=== PATIENT | female | born 1975 | race Caucasian/White ===

== ENCOUNTER 2018-03-04 16:50 | Inpatient (IN) | payer OTHER ==
[~2018-03-04] VITALS: Ht 160 cm; Wt 102.9 kg
[2018-03-04 17:27] LABS: HEMATOCRIT 36.2 % (36.0-46.0); HEMOGLOBIN 11.9 G/DL (11.9-15.5); MCHC 32.9 G/DL (30.0-36.0); MCV 79.2 FL (83-99); PLATELET COUNT 308 K/uL (156-360); RBC DIS.WIDTH-SD 43.2 % (39-53); RED BLOOD COUNT 4.57 M/uL (3.80-5.20); WHITE BLOOD COUNT 13.2 K/uL (4.1-10.2)
[2018-03-04 17:38] LABS: ALBUMIN 4.2 g/dL (3.2-4.8); CHLORIDE 102 mEq/L (99-109); POTASSIUM 3.6 mEq/L (3.7-5.4); SODIUM 137 mEq/L (136-147)
[2018-03-04 17:40] LABS: GLUCOSE 117 mg/dL (70-99); TOTAL PROTEIN 8.1 g/dL (6.4-8.3)
[2018-03-04 17:42] LABS: TOTAL BILIRUBIN 0.2 mg/dL (0.0-1.0)
[2018-03-04 17:44] LABS: ALKALINE PHOSPHATASE 98 IU/L (3-129); CREATININE 0.8 mg/dL (0.6-1.3); GFR ESTIMATE (CALCULATED) > 59 mL/min/
[2018-03-04 17:45] LABS: UREA NITROGEN (BUN) 13 mg/dL (9-23)
[2018-03-04 17:46] LABS: AST (GOT) 18 IU/L (2-34)
[2018-03-04 17:47] LABS: ALT (GPT) 28 IU/L (3-49)
[2018-03-04 18:46] LABS: LIPASE 11 U/L (1.0-51.0)
[2018-03-04 18:51] LABS: QUANTITATIVE HCG < 4.0 MIU/ML
[2018-03-04 18:58] LABS: APPEARANCE SL.HAZY ((CLEAR)); BILIRUBIN NEGATIVE; BLOOD SMALL; COLOR YELLOW ((YELLOW)); GLUCOSE (STRIP) NEGATIVE; KETONES NEGATIVE; LEUKOCYTES NEGATIVE; NITRITE NEGATIVE; PROTEIN (STRIP) NEGATIVE
[2018-03-04 19:02] LABS: BACTERIA RARE /HPF; EPITHELIAL CELLS 1+ /HPF; MUCUS TRACE /LPF; RED BLOOD CELLS 0-5 /HPF (0-5); UCUL ADDED? NO; WHITE BLOOD CELLS 0-5 /HPF (0-5)
[2018-03-05] MEDS ORDERED: ATORVASTATIN CA40 MG PO (00:37)
[2018-03-05] MEDS ORDERED: LISINOPRIL20 MG PO (00:38)
[2018-03-05] MEDS ORDERED: CHLORTHALIDONE25 MG PO (01:57)
[2018-03-05 02:26] VITALS: BP 128/82
[2018-03-05 06:29] LABS: HEMATOCRIT 36.1 % (36.0-46.0); HEMOGLOBIN 11.5 G/DL (11.9-15.5); MCH 25.4 PG (29.0-34.0); MCHC 31.9 G/DL (30.0-36.0); MCV 79.9 FL (83-99); PLATELET COUNT 309 K/uL (156-360); RBC DIS.WIDTH-CV 15.2 % (11.8-14.6); RBC DIS.WIDTH-SD 43.8 % (39-53); RED BLOOD COUNT 4.52 M/uL (3.80-5.20); WHITE BLOOD COUNT 12.9 K/uL (4.1-10.2)
[2018-03-05 07:02] LABS: ALKALINE PHOSPHATASE 85 IU/L (3-129); ALT (GPT) 23 IU/L (3-49); AST (GOT) 18 IU/L (2-34); CHLORIDE 98 MEQ/L (99-109); CREATININE 0.7 MG/DL (0.6-1.3); GFR ESTIMATE (CALCULATED) > 59 mL/min/; GLUCOSE 128 mg/dL (70-99); MAGNESIUM 2.3 mg/dl (1.3-2.7); PHOSPHORUS 3.8 mg/dL (2.5-4.9); POTASSIUM 3.8 MEQ/L (3.7-5.4); SODIUM 138 MEQ/L (136-147); TOTAL BILIRUBIN 0.5 MG/DL (0.0-1.0); TOTAL PROTEIN 7.8 G/DL (6.4-8.3); UREA NITROGEN (BUN) 11 mg/dL (9-23)
[2018-03-05 07:52] VITALS: BP 110/60
[2018-03-05 11:15] VITALS: BP 117/72
[2018-03-05 16:35] VITALS: BP 107/67
[2018-03-05 20:22] VITALS: BP 97/56
[2018-03-05 21:12] LABS: APPEARANCE CLEAR ((CLEAR)); BILIRUBIN NEGATIVE; BLOOD NEGATIVE; COLOR YELLOW ((YELLOW)); GLUCOSE (STRIP) NEGATIVE; KETONES NEGATIVE; LEUKOCYTES NEGATIVE; NITRITE NEGATIVE; PROTEIN (STRIP) NEGATIVE; UROBILINOGEN 0.2 MG/DL (0.2-1.0)
[2018-03-05 23:53] VITALS: BP 101/59
[2018-03-06 06:03] LABS: BASOPHIL (%) 0.7 % (0-1); BASOPHIL COUNT 0.1 K/uL (0-0.1); EOSINOPHIL (%) 1.9 % (0-5); EOSINOPHIL COUNT 0.2 K/uL (0-0.3); HEMATOCRIT 33.9 % (36.0-46.0); HEMOGLOBIN 10.7 G/DL (11.9-15.5); IMMATURE GRANULOCYTE (%) 0.6 % (0.0-0.7); LYMPHOCYTE (%) 23.8 % (15-42); LYMPHOCYTE COUNT 2.9 K/uL (1.0-2.8); MCH 25.1 PG (29.0-34.0); MCHC 31.6 G/DL (30.0-36.0); MCV 79.4 FL (83-99); MONOCYTE (%) 6.4 % (3-12); MONOCYTE COUNT 0.8 K/uL (0-0.8); NEUTROPHIL (%) 66.6 % (45-76); PLATELET COUNT 289 K/uL (156-360); RBC DIS.WIDTH-CV 14.8 % (11.8-14.6); RBC DIS.WIDTH-SD 43.2 % (39-53); RED BLOOD COUNT 4.27 M/uL (3.80-5.20)
[2018-03-06 06:20] LABS: ALBUMIN 3.8 G/DL (3.2-4.8); ALKALINE PHOSPHATASE 76 IU/L (3-129); ALT (GPT) 22 IU/L (3-49); AST (GOT) 17 IU/L (2-34); CHLORIDE 97 MEQ/L (99-109); CREATININE 0.8 MG/DL (0.6-1.3); DIRECT BILIRUBIN 0.1 mg/dL (0.0-0.3); GFR ESTIMATE (CALCULATED) > 59 mL/min/; GLUCOSE 112 mg/dL (70-99); POTASSIUM 3.2 MEQ/L (3.7-5.4); SODIUM 137 MEQ/L (136-147); TOTAL BILIRUBIN 0.6 MG/DL (0.0-1.0); TOTAL PROTEIN 7.4 G/DL (6.4-8.3); UREA NITROGEN (BUN) 10 mg/dL (9-23)
[2018-03-06 07:51] VITALS: BP 92/60
[2018-03-06] MEDS ORDERED: CIPRO500 MG PO (08:30)
[2018-03-06 10:56] VITALS: BP 123/76
== END 2018-03-06 11:23 | disposition home or self-care (01) | DRG 392 ==
LOC: EME 16:50 → EDOF 03-05 01:14 → ENRESERV 03-05 01:15 → 2EAST 03-05 02:06
PROVIDERS: Physician Assistant; Surgery
DX: R10.9 Unspecified abdominal pain (principal); N39.0 Urinary tract infection, site not specified; K80.20 Calculus of gallbladder without cholecystitis without obstruction; K82.8 Other specified diseases of gallbladder; D72.829 Elevated white blood cell count, unspecified; E78.5 Hyperlipidemia, unspecified; I10 Essential (primary) hypertension; F17.210 Nicotine dependence, cigarettes, uncomplicated; Z98.51 Tubal ligation status; Z80.8 Family history of malignant neoplasm of other organs or systems; Z82.49 Family history of ischemic heart disease and other diseases of the circulatory system
CPT/HCPCS: 74176; 76705; 80048; 80053; 80076; 81003; 83690; 83735; 84100; 84702; 85025; 85027; 87086; 99281; 99285; J0744; J1650; S0030

== ENCOUNTER → 2018-04-02 | Outpatient (CLI) | payer OTHER ==
[~2018-04-02] MED LIST: ATORVASTATIN CA40 MG PO; CHLORTHALIDONE25 MG PO; CIPRO500 MG PO; HYGROTON25 MG PO; LIPITOR40 MG PO; LISINOPRIL20 MG PO; PRINIVIL20 MG PO
== END | disposition home or self-care (01) ==
LOC: CDC 03-30 16:06
DX: Z01.810 Encounter for preprocedural cardiovascular examination (principal); I10 Essential (primary) hypertension; R94.31 Abnormal electrocardiogram [ECG] [EKG]
CPT/HCPCS: 93000

== ENCOUNTER 2018-05-03 08:27 | Day surgery (SDC) | payer OTHER ==
[~2018-05-03] VITALS: Ht 160 cm; Wt 102.9 kg
[2018-05-03 09:07] VITALS: BP 105/53
[2018-05-03] MEDS ORDERED: COLACE100 MG PO (14:04)
[2018-05-03] MEDS ORDERED: TRAMADOL HCL50 MG PO (14:04)
[2018-05-03 14:26] VITALS: BP 106/56
[2018-05-03 15:30] VITALS: BP 110/59
[2018-05-03 16:29] VITALS: BP 104/59
== END 2018-05-03 16:38 | disposition home or self-care (01) ==
LOC: SDC 08:27
PROC: 0FT44ZZ Resection of Gallbladder, Percutaneous Endoscopic Approach (ICD-10-PCS; principal; 2018-05-03)
DX: K80.10 Calculus of gallbladder with chronic cholecystitis without obstruction (principal); K82.1 Hydrops of gallbladder; E66.01 Morbid (severe) obesity due to excess calories; Z68.39 Body mass index [BMI] 39.0-39.9, adult; J32.9 Chronic sinusitis, unspecified; F17.200 Nicotine dependence, unspecified, uncomplicated; Z82.49 Family history of ischemic heart disease and other diseases of the circulatory system; Z88.0 Allergy status to penicillin; Z88.5 Allergy status to narcotic agent
CPT/HCPCS: 87070; 87075; 87205; 88304; J1100; J1170; J2405; J2710; J3010; J3475; J7643; Q0175; S0074